=== PATIENT | female | born 1955 | race Asian ===

== ENCOUNTER 2018-07-18 14:14 | Emergency (ER) | payer BC, OTHER ==
[2018-07-18] MEDS: hydrALAzine 20 MG INJ IV ×2 (15:29→17:35)
[2018-07-18 15:31] LABS: ADD MAN DIFF? NO
[2018-07-18 15:35] LABS: BASOPHILS % 0.3 % (0.0-2.0); EOSINOPHILS # 0.2 10^3/ul (0.0-0.5); EOSINOPHILS % 2.4 % (0.0-7.0); HEMATOCRIT 40.5 % (37.0-47.0); HEMOGLOBIN 13.1 g/dl (12.0-16.0); LYMPHOCYTES # 2.4 10^3/ul (0.8-2.9); MEAN CORPUSCULAR HEMOGLOBIN 30.3 pg (29.0-33.0); MEAN CORPUSCULAR HGB CONC 32.3 g/dl (32.0-37.0); MEAN CORPUSCULAR VOLUME 93.5 fl (82.0-101.0); MEAN PLATELET VOLUME 8.9 fl (7.4-10.4); MONOCYTE # 0.7 10^3/ul (0.3-0.9); MONOCYTES % 8.1 % (0.0-11.0); NEUTROPHIL # 5.3 10^3/ul (1.6-7.5); PLATELET COUNT 246 10^3/UL (140-415); RED BLOOD COUNT 4.33 10^6/ul (4.20-5.40); RED CELL DISTRIBUTION WIDTH 12.6 % (11.5-14.5)
[2018-07-18 15:35] LABS: WHITE BLOOD COUNT 8.7 10^3/ul (4.8-10.8)
[2018-07-18 15:54] LABS: ANION GAP 13 (8-16); BLOOD UREA NITROGEN 16 mg/dl (7-20); CALCIUM 10.8 mg/dl (8.4-10.2); CARBON DIOXIDE 27 mmol/L (21-31); CHLORIDE 105 mmol/L (97-110); CREATININE 0.85 mg/dl (0.44-1.00); GLUCOSE 97 mg/dl (70-220); POTASSIUM 4.2 mmol/L (3.5-5.1); SODIUM 141 mmol/L (135-144)
[2018-07-18] MEDS ORDERED: DIPHENHYDRAMINE 50 MG INJ IV (16:30)
[2018-07-18] MEDS ORDERED: PROCHLORPERAZINE 10 MG INJ IV (16:30)
[2018-07-18] MEDS: DEXAMETHASONE 10 MG/ML 1 ML INJ IV (16:42)
[2018-07-18] MEDS: KETOROLAC 30 MG INJ IV (16:42)
== END 2018-07-18 18:07 | disposition home or self-care (01) ==
LOC: E/R 14:14
DX: R51 Headache (principal); I10 Essential (primary) hypertension; R40.2142 Coma scale, eyes open, spontaneous, at arrival to emergency department; R40.2362 Coma scale, best motor response, obeys commands, at arrival to emergency department; R40.2252 Coma scale, best verbal response, oriented, at arrival to emergency department; Z86.011 Personal history of benign neoplasm of the brain; Z87.891 Personal history of nicotine dependence
CPT/HCPCS: 80048; 85025; 93005; 96374; 96375; 96376; 99284-25

== ENCOUNTER 2018-10-17 07:19 | Day surgery (SDC) | payer BC ==
[2018-10-17 08:46] LABS: INR 0.91; PROTIME 12.3 Sec (11.9-14.9)
[2018-10-17 08:47] LABS: PARTIAL THROMBOPLASTIN TIME 34.6 Sec (23.0-35.0)
[2018-10-17] MEDS ORDERED: ROCURONIUM 50 MG INJ (11:03)
[2018-10-17] MEDS ORDERED: PROPOFOL 20 ML (11:03)
[2018-10-17] MEDS ORDERED: FENTAnyl 50 MCG/ML VIAL (11:03)
[2018-10-17] MEDS ORDERED: LIDOCAINE 2% (SDV) 5 ML INJ ×2 (11:03→14:34)
[2018-10-17] MEDS: POLYMYXIN/BACITRACIN 1L IRRIG (11:11)
[2018-10-17] MEDS ORDERED: HYDROmorphONE 2 MG/ML SYG (11:41)
[2018-10-17] MEDS ORDERED: ONDANSETRON 4 MG INJ (11:57)
[2018-10-17] MEDS ORDERED: CEFAZOLIN 1 GM INJ (11:57)
[2018-10-17] MEDS ORDERED: DEXAMETHASONE 4 MG/ML 1 ML INJ (11:57)
[2018-10-17] MEDS ORDERED: GLYCOPYRROLATE 0.4 MG INJ (11:58)
[2018-10-17] MEDS ORDERED: FAMOTIDINE 20 MG INJ (11:58)
[2018-10-17] MEDS ORDERED: NEOSTIGMINE 3 MG/3 ML SYRINGE (11:58)
[2018-10-17] MEDS ORDERED: EPHEDrine SULFATE 50 MG/5 ML SYG (12:06)
[2018-10-17] MEDS ORDERED: SUGAMMADEX SODIUM 200 MG/2 ML VIAL IV (12:24)
[2018-10-17] MEDS ORDERED: KETOROLAC 30 MG INJ (12:26)
[2018-10-17] MEDS: BUPIVACAINE 0.5% (SDV) 30 ML INJ (12:34)
[2018-10-17] MEDS ORDERED: NALOXONE (0.4 MG/ML) INJ IV (13:00)
[2018-10-17] MEDS ORDERED: MEPERIDINE 25 MG INJ (13:42)
[2018-10-17] MEDS: ACETAMINOPHEN 1000MG/100ML IV 100 ML IVPB (13:54)
[2018-10-17] MEDS: MEPERIDINE 25 MG INJ IV (13:55)
[2018-10-17] MEDS ORDERED: HYDROmorphONE 1 MG/5 ML IV SYRINGE IV ×2 (14:00)
[2018-10-17] MEDS ORDERED: ONDANSETRON 4 MG INJ IV (14:00)
[2018-10-17] MEDS ORDERED: ROPIVACAINE 0.5 % 30 ML VIAL ×2 (14:34→17:15)
[2018-10-17] MEDS: OXYCODONE/ACETAMINOPHEN (5/325) TAB PO (17:01)
[2018-10-17] MEDS: FENTAnyl 50 MCG/ML VIAL IV (17:01)
== END 2018-10-17 18:34 | disposition home or self-care (01) ==
LOC: SDS 07:19
DX: M21.6X2 Other acquired deformities of left foot (principal)
CPT/HCPCS: 28118; 73630-LT; 85610; 85730; 88304; 88311